=== PATIENT | male | born 1975 | race Caucasian/White ===

== ENCOUNTER 2018-01-04 22:49 | Emergency (ER) | payer SELFPAY ==
--- NOTE | 2018-01-04 23:33 | EDPHYS ---
Physician Documentation [facility] Name: Duy Torres Jr Age: 42 yrs Sex: Male : 1975 Arrival Date: 01/04/2018 Time: 22:54 Bed 23 Private MD: ED Physician Naldo Jones HPI: 01/04 23:27 This 42 yrs old Male presents to ER via Ambulatory with complaints of jmm Toothache, Rash. 23:27 The patient presents with pain. The problem is located in the frenulum, gums, left jmm buccal mucosa and right buccal mucosa. Onset: The symptoms/episode began/occurred gradually. Patient complains of chronic dental pain. Denies fever. Also complains of rash to his left forearm. . Historical: - Allergies: 23:06 No Known Allergies; fc - Home Meds: 23:06 [place] 10-325 mg Oral tab 1 tab every 6 hours [Active]; gabapentin 400 mg oral cap 1 cap fc twice a day [Active]; BuSpar Oral 10 mg twice a day [Active]; - PMHx: 23:06 neck pain; Back pain; Depression; Anxiety; fc - PSHx: 23:06 Hernia repair; testicular torsion; fc - Immunization history:: Last tetanus immunization: unknown. - Social history:: Smoking status: Patient uses tobacco products, smokes one pack cigarettes per day. Patient/guardian denies using alcohol, street drugs, the patient reports quitting approximately 6 years ago. - Ebola Screening: : Patient negative for fever greater than or equal to 101.5 degrees Fahrenheit, and additional compatible Ebola Virus Disease symptoms Patient denies exposure to infectious person Patient denies travel to an Ebola-affected area in the 21 days before illness onset. ROS: 23:27 Constitutional: Negative for fever, chills, and weight loss, Respiratory: Negative for jmm shortness of breath, cough, wheezing, and pleuritic chest pain, Abdomen/GI: Negative for abdominal pain, nausea, vomiting, diarrhea, and constipation. 23:27 MS/Extremity: Negative for injury and deformity. jmm 23:27 ENT: Positive for dental pain. 23:27 Skin: Positive for rash. 23:27 All other systems are negative. Exam: 23:27 Head/Face: atraumatic. Chest/axilla: Normal chest wall appearance and motion. jmm Nontender with no deformity. No lesions are appreciated. Cardiovascular: Regular rate and rhythm. No gallops, murmurs, or rubs. Full/Equal distal pulses. Respiratory: Lungs have equal breath sounds bilaterally, clear to auscultation. No rales, rhonchi or wheezes noted. No increased work of breathing, no retractions or nasal flaring. 23:27 Constitutional: The patient appears in no acute distress, alert, awake. 23:27 ENT: diffuse dental decay noted, no periapical swelling or purulent drainage appreciated. . 23:27 Skin: no erythema noted to the left forearm, no petechiae appreciated, non tender to palpation, no induration appreicated. 23:27 Neuro: Orientation: is normal, Mentation: is normal, Memory: is normal, Gait: is steady. Vital Signs: 23:06 BP 126 / 91; Pulse 75; Resp 20; Temp 99.0(O); Pulse Ox 96% on R/A; Weight 89.36 kg (R); fc Height 5 ft. 9 in. (175.26 cm) (R); Pain 3/10; 23:06 Body Mass Index 29.09 (89.36 kg, 175.26 cm) fc MDM: 23:16 Patient medically screened. julieta 23:27 Data reviewed: vital signs, nurses notes. [facility] Administered Medications: No medications were administered Disposition: 01/05 06:37 Co-signature as Attending Physician, Naldo Jones MD I agree with the assessment and [facility] plan of care. Chart complete. Disposition: 01/04/18 23:32 Discharged to Home. Impression: Other specified disorders of teeth and supporting structures, Rash and other nonspecific skin eruption. - Condition is Stable. - Discharge Instructions: Rash. - Prescriptions for penicillin V potassium 500 mg Oral tablet - take 1 tablet by ORAL route 4 times per day for 10 days; 40 tablet. Peridex 0.12 % Mucous Membrane mouthwash - place 15 milliliter by MUCOUS MEMBRANE route 2 times per day after brushing teeth, swish in mouth for 30 seconds then spit out; 100 milliliter. - Medication Reconciliation Form, Thank You Letter, Antibiotic Education, Prescription Opioid Use form. - Follow up: Private Physician; When: 1 - 2 days; Reason: Recheck today's complaints. - Notes: Please follow up with [facility] or dentist for further evaluation of your dental pain. Please return to the ED if you develop increased pain, fever, swelling, or any other concerning symptoms. Please follow up with dermatotology for further evaluation of your rash. Please return to the ED if you develop redness, increased swelling or fever. Signatures: Naldo Jones MD MD cha Mickail, Joel, PA PA jmm Chretien, Felicia, RN RN Edgard Moreira RN RN mb3 Corrections: (The following items were deleted from the chart) 00:00 06 23:32 01/04/2018 23:32 Discharged to Home. Impression: Other specified disorders mb3 of teeth and supporting structures; Rash and other nonspecific skin eruption. Condition is Stable. Forms are Medication Reconciliation Form, Thank You Letter, Antibiotic Education, Prescription Opioid Use. Follow up: Private Physician; When: 1 - 2 days; Reason: Recheck today's complaints. antoine
--- NOTE | 2018-01-04 23:33 | ER ---
Nurse's Notes [facility] Name: Duy Torres Jr Age: 42 yrs Sex: Male : 1975 Arrival Date: 01/04/2018 Time: 22:54 Bed 23 Private MD: Diagnosis: Other specified disorders of teeth and supporting structures;Rash and other nonspecific skin eruption Presentation: 01/04 22:59 Presenting complaint: Patient states: that all his teeth hurt and he needs antibiotics. fc States that he has a bad taste and smell in his mouth even after brushing teeth. Is also complaining of brown spots x 3 on his left forearm that he noticed approx 1 year ago. The areas started to hurt and itch recently. Transition of care: patient was not received from another setting of care. Onset of symptoms was September 2017. Risk Assessment: Do you want to hurt yourself or someone else? Patient reports no desire to harm self or others. Initial Sepsis Screen: Does the patient meet any 2 criteria? No. Patient's initial sepsis screen is negative. Does the patient have a suspected source of infection? No. Patient's initial sepsis screen is negative. Care prior to arrival: Medication(s) given: [place] last at 2200. 22:59 Method Of Arrival: Ambulatory 22:59 Acuity: VALERIE 4 Triage Assessment: 23:57 General: Appears unkempt. EENT: Reports pain in mouth. mb3 Historical: - Allergies: 23:06 No Known Allergies; fc - Home Meds: 23:06 [place] 10-325 mg Oral tab 1 tab every 6 hours [Active]; gabapentin 400 mg oral cap 1 cap fc twice a day [Active]; BuSpar Oral 10 mg twice a day [Active]; - PMHx: 23:06 neck pain; Back pain; Depression; Anxiety; fc - PSHx: 23:06 Hernia repair; testicular torsion; fc - Immunization history:: Last tetanus immunization: unknown. - Social history:: Smoking status: Patient uses tobacco products, smokes one pack cigarettes per day. Patient/guardian denies using alcohol, street drugs, the patient reports quitting approximately 6 years ago. - Ebola Screening: : Patient negative for fever greater than or equal to 101.5 degrees Fahrenheit, and additional compatible Ebola Virus Disease symptoms Patient denies exposure to infectious person Patient denies travel to an Ebola-affected area in the 21 days before illness onset. Screenin:56 Abuse screen: Denies threats or abuse. Nutritional screening: No deficits noted. mb3 Tuberculosis screening: No symptoms or risk factors identified. Fall Risk None identified. Assessment: 23:54 General: Appears in no apparent distress. slender, unkempt, Behavior is calm, mb3 cooperative, appropriate for age. Pain: Complains of pain in mouth. Neuro: No deficits noted. Cardiovascular: No deficits noted. Respiratory: No deficits noted. GI: No deficits noted. No signs and/or symptoms were reported involving the gastrointestinal system. EENT: Poor dentition noted. Dental caries noted in multiple dental carries in multiple teeth. Vital Signs: 23:06 BP 126 / 91; Pulse 75; Resp 20; Temp 99.0(O); Pulse Ox 96% on R/A; Weight 89.36 kg (R); fc Height 5 ft. 9 in. (175.26 cm) (R); Pain 3/10; 23:06 Body Mass Index 29.09 (89.36 kg, 175.26 cm) ED Course: 22:54 Patient arrived in ED. es 23:03 Triage completed. 23:06 Arm band placed on Patient placed in an exam room, on a stretcher. 23:11 Glenn Kne PA is PHCP. [facility] 23:12 Naldo Jones MD is Attending Physician. [facility] 23:50 Edgard Colby, RN is Primary Nurse. mb3 23:56 No provider procedures requiring assistance completed. Patient did not have IV access mb3 during this emergency room visit. 23:57 Patient has correct armband on for positive identification. mb3 Administered Medications: No medications were administered Outcome: 23:32 Discharge ordered by . christopherm 23:56 Discharged to home ambulatory. mb3 23:56 Condition: stable 23:56 Discharge instructions given to patient, Instructed on discharge instructions, follow up and referral plans. medication usage, Demonstrated understanding of instructions, follow-up care, medications, Prescriptions given X 2. 06/08 00:00 Patient left the ED. mb3 Signatures: Glenn Ken PA PA Melani Hopkins Felicia, RN RN Edgard Colby RN RN mb3 Corrections: (The following items were deleted from the chart) 00:00 06/07 23:56 Discharge instructions given to patient, Instructed on discharge mb3 instructions, follow up and referral plans. medication usage, Demonstrated understanding of instructions, follow-up care, medications, Prescriptions given X 1, mb3 01/05 00:00 01/04 23:59 Prescriptions given X 2, mb3 mb3
== END 2018-01-05 | disposition home or self-care (01) ==
LOC: ER 22:49
DX: K08.89 Other specified disorders of teeth and supporting structures (principal); R21 Rash and other nonspecific skin eruption; F32.9 Major depressive disorder, single episode, unspecified; F41.9 Anxiety disorder, unspecified; F17.210 Nicotine dependence, cigarettes, uncomplicated
CPT/HCPCS: 99282

== ENCOUNTER 2018-03-29 23:19 | Emergency (ER) | payer SELFPAY ==
[2018-03-30] MEDS ORDERED: IPRATROPIUM BROM 0.5MG/2.5ML ONE (01:07)
[2018-03-30] MEDS ORDERED: ALBUTEROL 2.5 MG/3 ML NEB SOL ONE (01:07)
[2018-03-30] MEDS ORDERED: IBUPROFEN 400 MG TAB ONE (01:08)
[2018-03-30] MEDS ORDERED: IBUPROFEN 200 MG TAB PO ONE (01:08)
[2018-03-30] MEDS ORDERED: ACETAMINOPHEN 500 MG TAB ONE (01:08)
[2018-03-30] MEDS ORDERED: predniSONE 20 MG TAB ONE (01:09)
--- NOTE | 2018-03-30 02:46 | EDPHYS ---
Physician Documentation [facility] Name: Duy Torres Jr Age: 42 yrs Sex: Male : 1975 Arrival Date: 03/29/2018 Time: 23:22 Bed 7 Private MD: ED Physician Zbigniew Bragg HPI: 03/30 02:39 This 42 yrs old Male presents to ER via Ambulatory with complaints of Throat wa pain, rt chest pain. 02:39 The patient or guardian reports cough, that is constant, with no sputum, sore throat. wa pain in R chest with deep breathing. Onset: The symptoms/episode began/occurred 3 day(s) ago. Modifying factors: The symptoms are alleviated by nothing. the symptoms are aggravated by cough. Associated signs and symptoms: Pertinent positives: chest pain, sore throat, Pertinent negatives: diarrhea, fever, rhinorrhea, vomiting. Severity of symptoms: At their worst the symptoms were moderate in the emergency department the symptoms are unchanged. The patient has not experienced similar symptoms in the past. The patient has not recently seen a physician. smokes cigarettes . Historical: - Allergies: 03/29 23:40 No Known Allergies; bb - Home Meds: 23:40 [place] 10-325 mg Oral tab 1 tab every 6 hours [Active]; gabapentin 400 mg Oral cap 1 cap bb twice a day [Active]; - PMHx: 23:40 Anxiety; Back pain; Depression; neck pain; bb - PSHx: 23:40 Hernia repair; testicular torsion; bb - Immunization history:: Adult Immunizations unknown. - Social history:: Smoking status: Patient uses tobacco products, smokes two packs cigarettes per day. Patient/guardian denies using alcohol, street drugs, the patient reports quitting approximately 6 years ago. - Ebola Screening: : No symptoms or risks identified at this time. - Family history:: not pertinent. - Hospitalizations: : No recent hospitalization is reported. ROS: 03/30 02:41 Constitutional: Negative for fever, chills, and weight loss, Eyes: Negative for injury, wa pain, redness, and discharge, Neck: Negative for injury, pain, and swelling, Abdomen/GI: Negative for abdominal pain, nausea, vomiting, diarrhea, and constipation, Back: Negative for injury and pain, MS/Extremity: Negative for injury and deformity, Skin: Negative for injury, rash, and discoloration, Neuro: Negative for headache, weakness, numbness, tingling, and seizure, Psych: Negative for depression, anxiety, suicide ideation, homicidal ideation, and hallucinations. ENT: Positive for sore throat, Negative for nasal discharge, rhinorrhea. Cardiovascular: Positive for chest pain, with cough, Negative for edema, orthopnea, palpitations, paroxysmal nocturnal dyspnea. Respiratory: Positive for cough, with no reported sputum, Negative for hemoptysis, orthopnea, shortness of breath. Exam: 02:42 Constitutional: This is a well developed, well nourished patient who is awake, alert, wa and in no acute distress. Head/Face: Normocephalic, atraumatic. Eyes: Pupils equal round and reactive to light, extra-ocular motions intact. Lids and lashes normal. Conjunctiva and sclera are non-icteric and not injected. Cornea within normal limits. Periorbital areas with no swelling, redness, or edema. ENT: Nares patent. No nasal discharge, no septal abnormalities noted. Tympanic membranes are normal and external auditory canals are clear. Oropharynx with no redness, swelling, or masses, exudates, or evidence of obstruction, uvula midline. Mucous membranes moist. Neck: Trachea midline, no thyromegaly or masses palpated, and no cervical lymphadenopathy. Supple, full range of motion without nuchal rigidity, or vertebral point tenderness. No Meningismus. Chest/axilla: Normal chest wall appearance and motion. Nontender with no deformity. No lesions are appreciated. Cardiovascular: Regular rate and rhythm with a normal S1 and S2. No gallops, murmurs, or rubs. Normal PMI, no JVD. No pulse deficits. Abdomen/GI: Soft, non-tender, with normal bowel sounds. No distension or tympany. No guarding or rebound. No evidence of tenderness throughout. Back: No spinal tenderness. No costovertebral tenderness. Full range of motion. Skin: Warm, dry with normal turgor. Normal color with no rashes, no lesions, and no evidence of cellulitis. MS/ Extremity: Pulses equal, no cyanosis. Neurovascular intact. Full, normal range of motion. Neuro: Awake and alert, GCS 15, oriented to person, place, time, and situation. Cranial nerves II-XII grossly intact. Motor strength 5/5 in all extremities. Sensory grossly intact. Cerebellar exam normal. Normal gait. Psych: Awake, alert, with orientation to person, place and time. Behavior, mood, and affect are within normal limits. 02:42 Respiratory: the patient does not display signs of respiratory distress, Respirations: normal, Breath sounds: mild, scattered coarseness. , Respiratory rate: normal Vital Signs: 03/29 23:40 BP 129 / 91; Pulse 80; Resp 18 S; Temp 98.4(TE); Pulse Ox 97% on R/A; Weight 89.36 kg bb (R); Height 5 ft. 4 in. (162.56 cm) (R); Pain 7/10; 03/30 01:22 BP 115 / 48; Pulse 72; Resp 18; Pulse Ox 100% on R/A; jb4 02:22 BP 120 / 80; Pulse 80; Resp 18; Pulse Ox 95% on R/A; Pain 6/10; jb4 03/29 23:40 Body Mass Index 33.81 (89.36 kg, 162.56 cm) MDM: 00:31 Patient medically screened. ga 02:43 Differential diagnosis: bronchitis, URI, r/o PNA. Data reviewed: vital signs, nurses wa notes. Test interpretation: by ED physician or midlevel provider: CXR: no acute process: noted spot on L lung that needs close f/u in a pt who smokes. pt advised. Response to treatment: the patient's symptoms have markedly improved after treatment. 03/30 00:52 Order name: Chest Pa And Lat (2 Views) XRAY ga 03/30 00:21 Order name: EKG; Complete Time: 00:22 aa1 03/30 00:21 Order name: EKG - Nurse/Tech; Complete Time: 00:21 aa1 Administered Medications: : Drug: Motrin 600 mg Route: PO; 02:00 Follow up: Response: Pain is decreased : Drug: Tylenol 1000 mg Route: PO; 02:00 Follow up: Response: Pain is decreased Drug: Albuterol 2.5 mg Route: Inhalation; 02:00 Follow up: Response: No adverse reaction : Drug: AtroVENT Aerosol 0.5 mg Route: Inhalation; 02:00 Follow up: Response: No adverse reaction jb4 01:26 Drug: predniSONE 40 mg Route: PO; jb4 02:00 Follow up: Response: No adverse reaction jb4 Disposition: 03/30/18 02:45 Discharged to Home. Impression: Acute Pleuritic Chest Pain, Acute Sore Throat, cough. - Condition is Stable. - Prescriptions for Zithromax Z- [place] 250 mg Oral Tablet - take 1 tablet by ORAL route as directed for 5 days Day 1 - take two (2) tablets one time. Day 2, 3, 4 , 5 take one (1) tablet once daily.; 6 tablet. Albuterol Sulfate 90 mcg/actuation - inhale 1-2 puff by INHALATION route every 4-6 hours; 1 Inhaler. Prednisone 20 mg Oral Tablet - take 2 tablet by ORAL route once daily for 5 days; 10 tablet. - Medication Reconciliation Form, Thank You Letter, Antibiotic Education, Prescription Opioid Use form. - Follow up: Private Physician; When: 1 - 2 days; Reason: Re-evaluation by your physician. - Problem is new. - Symptoms have improved. - Notes: Take medicines as prescribed. follow up with your primary doctor for further evaluation of your illness. There is spot in your left lung that is abnormal and need to be followed with serial chest x-rays to make sure it does not turn into cancer Signatures: Dispatcher [employer] EDFlower Sykes RN RN aa1 Shazia Garcia RN RN bb Chance Chew RN RN jb4 Zbigniew Bragg MD MD wa Corrections: (The following items were deleted from the chart) 03:11 02:45 03/30/2018 02:45 Discharged to Home. Impression: Acute Pleuritic Chest Pain; jb4 Acute Sore Throat; cough. Condition is Stable. Forms are Medication Reconciliation Form, Thank You Letter, Antibiotic Education, Prescription Opioid Use. Follow up: Private Physician; When: 1 - 2 days; Reason: Re-evaluation by your physician. Problem is new. Symptoms have improved. wa
--- NOTE | 2018-03-30 02:46 | ER ---
Nurse's Notes [facility] Name: Duy Torres Jr Age: 42 yrs Sex: Male : 1975 Arrival Date: 03/29/2018 Time: 23:22 Bed 7 Private MD: Diagnosis: Acute Pleuritic Chest Pain;Acute Sore Throat;cough Presentation: 03/29 23:38 Presenting complaint: Patient states: he has right sided chest pain since yesterday has bb a dry cough, also c/o sore throat for several days feels scratchy, pt takes hydrocodone for chronic neck pain which is not helping his chest pain. Transition of care: patient was not received from another setting of care. Onset of symptoms was March 26, 2018. Risk Assessment: Do you want to hurt yourself or someone else? Patient reports no desire to harm self or others. Initial Sepsis Screen: Does the patient meet any 2 criteria? No. Patient's initial sepsis screen is negative. Does the patient have a suspected source of infection? No. Patient's initial sepsis screen is negative. Care prior to arrival: None. 23:38 Method Of Arrival: Ambulatory bb 23:38 Acuity: VALERIE 3 bb Historical: - Allergies: 23:40 No Known Allergies; bb - Home Meds: 23:40 [place] 10-325 mg Oral tab 1 tab every 6 hours [Active]; gabapentin 400 mg Oral cap 1 cap bb twice a day [Active]; - PMHx: 23:40 Anxiety; Back pain; Depression; neck pain; bb - PSHx: 23:40 Hernia repair; testicular torsion; bb - Immunization history:: Adult Immunizations unknown. - Social history:: Smoking status: Patient uses tobacco products, smokes two packs cigarettes per day. Patient/guardian denies using alcohol, street drugs, the patient reports quitting approximately 6 years ago. - Ebola Screening: : No symptoms or risks identified at this time. - Family history:: not pertinent. - Hospitalizations: : No recent hospitalization is reported. Screenin/31 00:36 Abuse screen: Denies threats or abuse. Nutritional screening: No deficits noted. jb4 Tuberculosis screening: No symptoms or risk factors identified. Fall Risk None identified. Assessment: 00:36 General: Appears in no apparent distress. uncomfortable, Behavior is calm, cooperative, jb4 appropriate for age. Pain: Complains of pain in right breast Pain radiates to right subscapular area Pain currently is 7 out of 10 on a pain scale. at worst was 9 out of 10 on a pain scale. Quality of pain is described as sharp, throbbing, Pain began 1 day ago. Is continuous. Neuro: Level of Consciousness is awake, alert, obeys commands, Oriented to person, place, time, situation. Cardiovascular: Reports chest pain, Heart tones S1 S2 present Patient's skin is warm and dry. Respiratory: Reports cough that is non-productive, Airway is patent Respiratory effort is even, unlabored, Respiratory pattern is regular, symmetrical, Breath sounds are clear bilaterally. GI: Abdomen is round Bowel sounds present X 4 quads. Abd is soft and non tender X 4 quads. Reports nausea. : No signs and/or symptoms were reported regarding the genitourinary system. EENT: Throat is reddened. Derm: Skin is intact, Skin is pink, warm \T\ dry. Musculoskeletal: Circulation, motion, and sensation intact. 01:29 Reassessment: Patient appears in no apparent distress at this time. Patient and/or jb4 family updated on plan of care and expected duration. Pain level reassessed. Patient is alert, oriented x 3, equal unlabored respirations, skin warm/dry/pink. 02:22 Reassessment: Patient appears in no apparent distress at this time. Patient and/or jb4 family updated on plan of care and expected duration. Pain level reassessed. Patient is alert, oriented x 3, equal unlabored respirations, skin warm/dry/pink. Pt reports a decrease in pain. Patient states feeling better. Vital Signs: 03/29 23:40 BP 129 / 91; Pulse 80; Resp 18 S; Temp 98.4(TE); Pulse Ox 97% on R/A; Weight 89.36 kg bb (R); Height 5 ft. 4 in. (162.56 cm) (R); Pain 7; 03/30 01:22 BP 115 / 48; Pulse 72; Resp 18; Pulse Ox 100% on R/A; jb4 02:22 BP 120 / 80; Pulse 80; Resp 18; Pulse Ox 95% on R/A; Pain 6/10; jb4 03/29 23:40 Body Mass Index 33.81 (89.36 kg, 162.56 cm) ED Course: 03/29 23:22 Patient arrived in ED. es 23:39 Triage completed. bb 23:40 Arm band placed on Patient placed in waiting room, Patient notified of wait time. agustín 03/30 00:30 Zbigniew Bragg MD is Attending Physician. in 00:36 Chance Chew RN is Primary Nurse. jb4 00:36 Patient has correct armband on for positive identification. Bed in low position. Call jb4 light in reach. Side rails up X 1. Pulse ox on. NIBP on. 01:11 Chest Pa And Lat (2 Views) XRAY In Process Unspecified. EDMS 03:10 No provider procedures requiring assistance completed. Patient did not have IV access jb4 during this emergency room visit. Administered Medications: :26 Drug: Motrin 600 mg Route: PO; jb4 02:00 Follow up: Response: Pain is decreased jb4 01:26 Drug: Tylenol 1000 mg Route: PO; jb4 02:00 Follow up: Response: Pain is decreased jb4 01:26 Drug: Albuterol 2.5 mg Route: Inhalation; jb4 02:00 Follow up: Response: No adverse reaction jb4 01:26 Drug: AtroVENT Aerosol 0.5 mg Route: Inhalation; jb4 02:00 Follow up: Response: No adverse reaction jb4 01:26 Drug: predniSONE 40 mg Route: PO; jb4 02:00 Follow up: Response: No adverse reaction jb4 Outcome: 02:45 Discharge ordered by . jason 03:10 Discharged to home ambulatory. jb4 03:10 Condition: stable 03:10 Discharge instructions given to patient, Instructed on discharge instructions, follow up and referral plans. medication usage, Demonstrated understanding of instructions, follow-up care, medications, Prescriptions given X 3. 03:11 Patient left the ED. jb4 Signatures: Dispatcher [employer] EDLA Melani Sheehan Brenda, RN RN bb Bryson, James, RN RN jb4 Zbigniew Bragg MD MD wa Corrections: (The following items were deleted from the chart) 00:36 EENT: No signs and/or symptoms were reported regarding the EENT system. jb4 jb4
--- NOTE | 2018-03-30 08:40 | RAD REPORT ---
EXAM DESCRIPTION: RAD - Chest Pa And Lat (2 Views) - 03/30/2018 1:13 am CLINICAL HISTORY: COUGH Chest pain. COMPARISON: CHEST PA AND LAT 2 VIEW dated 08/16/2014; CHEST PA AND LAT 2 VIEW dated 08/15/2014 FINDINGS: Left upper lobe calcified granulomata are noted, benign. The lungs are clear of acute infi ltrate. The heart is normal in size. No displaced fractures. IMPRESSION: No acute or concerning finding suspected.
--- NOTE | 2018-03-31 06:09 | EKG ---
Test Date: 2018-03-29 Test Time: 23:42:36 [employer]: [place] MEASUREMENT RESULTS: Intervals: Rate: 68 IN: 162 QRSD: 104 QT: 372 QTc: 395 [place]: P: 42 IN: 162 QRS: 58 T: 39 INTERPRETIVE STATEMENTS: Normal sinus rhythm with sinus arrhythmia Normal ECG Compared to ECG 08/16/2014 20:51:11 No significant changes Electronically Signed On 03-31-18 06:07:34 CDT by Ronald Gamble
== END 2018-03-30 03:11 | disposition home or self-care (01) ==
LOC: ER 23:19
DX: J02.9 Acute pharyngitis, unspecified (principal); R07.81 Pleurodynia; F17.210 Nicotine dependence, cigarettes, uncomplicated; F41.9 Anxiety disorder, unspecified; F32.9 Major depressive disorder, single episode, unspecified
CPT/HCPCS: 71046; 93005; 99284; J7512

== ENCOUNTER 2019-06-15 06:21 | Emergency (ER) | payer SELFPAY ==
--- OUTSIDE RECORDS SUMMARY | 2019-06-15 06:23 | XMS REPORT ---
:1975 [facility] Address [address] [place] [address] [address] [place] [address] Care Team Providers Name Role Phone Unavailable Unavailable Unavailable Problems This patient has no known problems. Allergies, Adverse Reactions, Alerts This patient has no known allergies or adverse reactions. Medications This patient has no known medications.
--- NOTE | 2019-06-15 06:40 | ER ---
Nurse's Notes [facility] Name: Duy Torres Jr Age: 43 yrs Sex: Male : 1975 Arrival Date: 06/15/2019 Time: 06:23 Bed 5 Private MD: Diagnosis: Bronchitis, not specified as acute or chronic Presentation: 06/15 06:35 Presenting complaint: Patient states: cold symptoms for past 4-5 days and was seen at [address] and was started on medication but he had to miss several days of work and was told he needed to have a note to return to work on monday. Transition of care: patient was not received from another setting of care. Onset of symptoms was June 10, 2019. Risk Assessment: Do you want to hurt yourself or someone else? Patient reports no desire to harm self or others. Initial Sepsis Screen: Does the patient meet any 2 criteria? No. Patient's initial sepsis screen is negative. Does the patient have a suspected source of infection? No. Patient's initial sepsis screen is negative. Care prior to arrival: None. 06:35 Method Of Arrival: Ambulatory aa 06:35 Acuity: VALERIE 5 aa1 Triage Assessment: 06:37 General: Appears in no apparent distress. comfortable, Behavior is calm, cooperative, aa1 appropriate for age. Historical: - Allergies: 06:37 No Known Allergies; aa1 - Home Meds: 06:37 unknown BP med [Active]; aa1 - PMHx: 06:37 Anxiety; Back pain; Depression; neck pain; aa1 - PSHx: 06:37 testicular torsion; Hernia repair; aa1 - Immunization history:: Flu vaccine is not up to date. - Social history:: Smoking status: Patient uses tobacco products, smokes one pack cigarettes per day. - Ebola Screening: : Patient denies exposure to infectious person Patient denies travel to an Ebola-affected area in the 21 days before illness onset. Screenin:55 Abuse screen: Denies threats or abuse. Denies injuries from another. Nutritional ak1 screening: No deficits noted. Tuberculosis screening: No symptoms or risk factors identified. Fall Risk None identified. Vital Signs: 06:37 BP 138 / 83; Pulse 84; Resp 20; Temp 98.3; Pulse Ox 98% on R/A; Weight 92.99 kg; Height aa1 5 ft. 9 in. (175.26 cm); Pain 5/10; 06:37 Body Mass Index 30.27 (92.99 kg, 175.26 cm) aa1 ED Course: 06:23 Patient arrived in ED. ds1 06:34 Raúl Scott NP is PHCP. pm1 06:34 Fermin Syed MD is Attending Physician. pm1 06:37 Triage completed. aa1 06:37 Arm band placed on right wrist. aa1 06:55 Angélica Le, RN is Primary Nurse. ak1 06:55 Patient has correct armband on for positive identification. Bed in low position. Call ak1 light in reach. Side rails up X 1. 06:55 No provider procedures requiring assistance completed. Patient did not have IV access ak1 during this emergency room visit. Administered Medications: No medications were administered Outcome: 06:40 Discharge ordered by . pm1 06:55 Discharged to home ambulatory, pt mother is in ER6. ak1 06:55 Condition: good 06:55 Discharge instructions given to patient, Instructed on discharge instructions, follow up and referral plans. Demonstrated understanding of instructions, follow-up care. 06:57 Patient left the ED. ak1 Signatures: Flower Rodriguez RN RN aa1 Vaishali Curtis ds1 Angélica Le RN RN ak1 Raúl Scott, ANGELICA FIELD ARTILLERY TARGETING TECHNICIAN pm1
--- NOTE | 2019-06-15 06:40 | EDPHYS ---
Physician Documentation [facility] Name: Duy Torres Jr Age: 43 yrs Sex: Male : 1975 Arrival Date: 06/15/2019 Time: 06:23 Bed 5 Private MD: ED Physician Fermin Syed HPI: 06/15 06:38 This 43 yrs old Male presents to ER via Ambulatory with complaints of Cold pm1 Symptoms. 06:41 The patient or guardian reports cough. Onset: The symptoms/episode began/occurred 1 pm1 week(s) ago. Severity of symptoms: in the emergency department the symptoms have improved. Associated signs and symptoms: Pertinent negatives: chest pain, fever, sore throat, vomiting. The patient has been recently seen by a physician: Has been seen at two prior ER, [place] and [place] for the same complaint and has been prescribed antibiotics, albuterol, and steroids. Patient reports that he is feeling better and that he is here for a work note to return on Monday because he does not want to lose his job. Historical: - Allergies: 06:37 No Known Allergies; aa1 - Home Meds: 06:37 unknown BP med [Active]; aa1 - PMHx: 06:37 Anxiety; Back pain; Depression; neck pain; aa1 - PSHx: 06:37 testicular torsion; Hernia repair; aa1 - Immunization history:: Flu vaccine is not up to date. - Social history:: Smoking status: Patient uses tobacco products, smokes one pack cigarettes per day. - Ebola Screening: : Patient denies exposure to infectious person Patient denies travel to an Ebola-affected area in the 21 days before illness onset. ROS: 06:41 Constitutional: Negative for fever, chills, and weight loss, Eyes: Negative for injury, pm1 pain, redness, and discharge, ENT: Negative for injury, pain, and discharge, Neck: Negative for injury, pain, and swelling, Cardiovascular: Negative for chest pain, palpitations, and edema. 06:41 Abdomen/GI: Negative for abdominal pain, nausea, vomiting, diarrhea, and constipation, Back: Negative for injury and pain, MS/Extremity: Negative for injury and deformity, Skin: Negative for injury, rash, and discoloration, Neuro: Negative for headache, weakness, numbness, tingling, and seizure. 06:41 Respiratory: Positive for cough, Negative for dyspnea on exertion, shortness of breath, wheezing. Exam: 06:41 Constitutional: This is a well developed, well nourished patient who is awake, alert, pm1 and in no acute distress. Head/Face: Normocephalic, atraumatic. Chest/axilla: Normal chest wall appearance and motion. Nontender with no deformity. No lesions are appreciated. Cardiovascular: Regular rate and rhythm with a normal S1 and S2. No gallops, murmurs, or rubs. Normal PMI, no JVD. No pulse deficits. Respiratory: Lungs have equal breath sounds bilaterally, clear to auscultation and percussion. No rales, rhonchi or wheezes noted. No increased work of breathing, no retractions or nasal flaring. Abdomen/GI: Soft, non-tender, with normal bowel sounds. No distension or tympany. No guarding or rebound. No evidence of tenderness throughout. Back: No spinal tenderness. No costovertebral tenderness. Full range of motion. Skin: Warm, dry with normal turgor. Normal color with no rashes, no lesions, and no evidence of cellulitis. MS/ Extremity: Pulses equal, no cyanosis. Neurovascular intact. Full, normal range of motion. 06:41 Neuro: Orientation: is normal, Motor: is normal, moves all fours, Gait: is steady, at a normal pace, without difficulty. Vital Signs: 06:37 BP 138 / 83; Pulse 84; Resp 20; Temp 98.3; Pulse Ox 98% on R/A; Weight 92.99 kg; Height aa1 5 ft. 9 in. (175.26 cm); Pain 5/10; 06:37 Body Mass Index 30.27 (92.99 kg, 175.26 cm) aa1 MDM: 06:34 Patient medically screened. pm1 06:38 Data reviewed: vital signs. Data interpreted: Pulse oximetry: on room air is 98 %. pm1 Interpretation: normal. Counseling: I had a detailed discussion with the patient and/or guardian regarding: the historical points, exam findings, and any diagnostic results supporting the discharge/admit diagnosis, the need for outpatient follow up, to return to the emergency department if symptoms worsen or persist or if there are any questions or concerns that arise at home. 06:38 ED course: Patient offered chest X-ray and breathing treatment. Patient refused any pm1 kind of work up. He reports that he has an inhaler at home, azithromycin and steroids from his prior ER visits and is feeling better. He just wants to work note to go back to work on Monday. Administered Medications: No medications were administered Disposition: 06/15/19 06:40 Discharged to Home. Impression: Bronchitis, not specified as acute or chronic. - Condition is Stable. - Discharge Instructions: Acute Bronchitis, Adult. - Work release form, Medication Reconciliation Form, Thank You Letter, Antibiotic Education, Prescription Opioid Use form. - Follow up: Emergency Department; When: As needed; Reason: Worsening of condition. Follow up: Private Physician; When: 2 - 3 days; Reason: Recheck today's complaints, Continuance of care, Re-evaluation by your physician. - Problem is new. - Symptoms have improved. Addendum: 06/17/2019 21:54 Co-signature as Attending Physician, Fermin Syed MD I agree with the assessment and t w4 plan of care. Signatures: Flower Rodriguez RN RN aa1 Angélica Le RN RN ak1 Raúl Scott, ANDROID FRAMEWORK DEVELOPER ANDROID FRAMEWORK DEVELOPER pm1 Fermin Syed MD MD tw4 Corrections: (The following items were deleted from the chart) 06/15 06:57 06:40 06/15/2019 06:40 Discharged to Home. Impression: Bronchitis, not specified as ak1 acute or chronic. Condition is Stable. Forms are Medication Reconciliation Form, Thank You Letter, Antibiotic Education, Prescription Opioid Use. Follow up: Emergency Department; When: As needed; Reason: Worsening of condition. Follow up: Private Physician; When: 2 - 3 days; Reason: Recheck today's complaints, Continuance of care, Re-evaluation by your physician. Problem is new. Symptoms have improved. pm1
[2019-06-15 13:04] VITALS: BP 138/83; TEMP 98.3; O2SAT 98
== END 2019-06-15 06:57 | disposition home or self-care (01) ==
LOC: ER 06:21
DX: J40 Bronchitis, not specified as acute or chronic (principal); F17.210 Nicotine dependence, cigarettes, uncomplicated
CPT/HCPCS: 99281

== ENCOUNTER 2020-05-13 19:29 | Emergency (ER) | payer SELFPAY ==
--- OUTSIDE RECORDS SUMMARY | 2020-05-13 19:31 | XMS REPORT | Continuity of Care Document ---
:[address] [facility] Address [address] [place] [address] [address] [place] [address] Care Team Providers Name Role Phone Unavailable Unavailable Unavailable Problems This patient has no known problems. Allergies, Adverse Reactions, Alerts This patient has no known allergies or adverse reactions. Medications This patient has no known medications. Procedures This patient has no known procedures. Results This patient has no known results.
[2020-05-13 21:26] LABS: Absolute Lymphocytes (CBC) 3.9 K/uL (0.7-4.9); Basophils % 0.7 % (0-1.3); Lymphocytes % 31.6 % (15.3-44.8); MPV 9.7 fL (7.6-11.3); RBC Red Blood Cell Count 4.96 M/uL (4.33-5.43)
[2020-05-13 21:38] LABS: ALT/SGPT 62 U/L (12-78); AST/SGOT 20 U/L (15-37); Albumin 3.8 g/dL (3.4-5.0); Alkaline Phosphatase 106 U/L (45-117); BUN Blood Urea Nitrogen 14 mg/dL (7-18); Bicarbonate 30 mmol/L (21-32); Bilirubin Direct < 0.1 mg/dL (0-0.2); Bilirubin Total 0.3 mg/dL (0.2-1.0); Glucose Level 98 mg/dL (74-106); Lipase 90 U/L (73-393); Potassium 3.8 mmol/L (3.5-5.1); Protein, Total 7.7 g/dL (6.4-8.2); Sodium Level 144 mmol/L (136-145)
[2020-05-13] MEDS ORDERED: MORPHINE 4 MG/ML SYR ONE (21:44)
[2020-05-13] MEDS ORDERED: ONDANSETRON 4 MG/2 ML VIAL ONE (21:44)
[2020-05-13] MEDS ORDERED: NA CHLORIDE 0.9% 1,000 ML ONE (21:44)
[2020-05-14] MEDS ORDERED: KETOROLAC 30 MG/ML INJ ONE (00:14)
--- NOTE | 2020-05-14 00:37 | ER ---
Nurse's Notes [facility] Name: Duy Torres Jr Age: 44 yrs Sex: Male : 1975 Arrival Date: 05/13/2020 Time: 19:30 Bed 13 Private MD: Diagnosis: Kidney Stones Presentation: 05/13 19:49 Chief complaint: Patient states: I have a kidney stone 4mm on the R kidney. They gave ca1 me Flomax and some pain meds. But today, the pain has been worse on my R flank and shooting down the R testicle. I have not been able to pee and I am peein drops of blood. Coronavirus screen: Client denies travel out of the [place] in the last 14 days. At this time, the client does not indicate any symptoms associated with coronavirus-19. Ebola Screen: Patient negative for fever greater than or equal to 101.5 degrees Fahrenheit, and additional compatible Ebola Virus Disease symptoms Patient denies exposure to infectious person. Patient denies travel to an Ebola-affected area in the 21 days before illness onset. No symptoms or risks identified at this time. Initial Sepsis Screen: Does the patient meet any 2 criteria? No. Patient's initial sepsis screen is negative. Does the patient have a suspected source of infection? No. Patient's initial sepsis screen is negative. Risk Assessment: Do you want to hurt yourself or someone else? Patient reports no desire to harm self or others. Onset of symptoms was May 13, 2020. 19:49 Method Of Arrival: Ambulatory ca1 19:49 Acuity: VALERIE 3 ca1 Historical: - Allergies: 19:53 No Known Allergies; ca1 - PMHx: 19:53 Anxiety; Back pain; Depression; neck pain; Kidney stones; ca1 - PSHx: 19:53 testicular torsion; Hernia repair; ca1 - Immunization history:: Adult Immunizations up to date, Flu vaccine is not up to date. - Social history:: Smoking status: Patient reports the use of cigarette tobacco products, smokes one pack cigarettes per day. Screenin:00 Abuse screen: Denies threats or abuse. Nutritional screening: No deficits noted. jb4 Tuberculosis screening: No symptoms or risk factors identified. Fall Risk None identified. Assessment: 20:00 General: Appears in no apparent distress. uncomfortable, Behavior is calm, cooperative, jb4 appropriate for age. Pain: Complains of pain in right low back Pain does not radiate. Pain currently is 10 out of 10 on a pain scale. Quality of pain is described as throbbing, Pain began 2-3 days ago. Is continuous. Neuro: Level of Consciousness is awake, alert, obeys commands, Oriented to person, place, time, situation. Cardiovascular: Patient's skin is warm and dry. Respiratory: Airway is patent Respiratory effort is even, unlabored, Respiratory pattern is regular, symmetrical. GI: Reports nausea. : Reports pain in right flank(s), lower quadrant(s) testicle. EENT: No signs and/or symptoms were reported regarding the EENT system. Derm: Skin is intact, Skin is pink, warm \T\ dry. Musculoskeletal: Circulation, motion, and sensation intact. Range of motion: intact in all extremities. 21:00 Reassessment: Patient appears in no apparent distress at this time. Patient and/or jb4 family updated on plan of care and expected duration. Pain level reassessed. Patient is alert, oriented x 3, equal unlabored respirations, skin warm/dry/pink. 21:42 Reassessment: Patient appears in no apparent distress at this time. Patient and/or jb4 family updated on plan of care and expected duration. Pain level reassessed. Patient is alert, oriented x 3, equal unlabored respirations, skin warm/dry/pink. 22:45 Reassessment: Patient appears in no apparent distress at this time. Patient and/or jb4 family updated on plan of care and expected duration. Pain level reassessed. Patient is alert, oriented x 3, equal unlabored respirations, skin warm/dry/pink. 23:45 Reassessment: Patient appears in no apparent distress at this time. Patient and/or jb4 family updated on plan of care and expected duration. Pain level reassessed. Patient is alert, oriented x 3, equal unlabored respirations, skin warm/dry/pink. PT reports an increase in pain, provider notified, see MAR for orders. 05/14 01:15 Reassessment: Patient appears in no apparent distress at this time. Patient and/or jb4 family updated on plan of care and expected duration. Pain level reassessed. Patient is alert, oriented x 3, equal unlabored respirations, skin warm/dry/pink. Vital Signs: 10/14 19:49 BP 125 / 97; Pulse 89; Resp 16; Temp 97.4(TE); Pulse Ox 98% on R/A; Weight 94.8 kg (R); ca1 Height 5 ft. 9 in. (175.26 cm) (R); Pain 9/10; 21:40 BP 143 / 100; Pulse 68; Resp 16; Pulse Ox 98% on R/A; jb4 22:30 BP 137 / 93; Pulse 80; Resp 16; Pulse Ox 99% on R/A; jb4 05/14 00:00 BP 133 / 87; Pulse 71; Resp 16; Pulse Ox 98% on R/A; jb4 00:45 BP 138 / 93; Pulse 86; Resp 16; Pulse Ox 97% on R/A; jb4 05/13 19:49 Body Mass Index 30.86 (94.80 kg, 175.26 cm) ca1 ED Course: 05/13 19:30 Patient arrived in ED. cf2 19:52 Triage completed. ca1 19:53 Arm band placed on right wrist. ca1 19:59 Chance Chew, RN is Primary Nurse. jb4 20:00 Patient has correct armband on for positive identification. Bed in low position. Call jb4 light in reach. Side rails up X 1. Pulse ox on. NIBP on. 20:22 Angelo Blanchard MD is Attending Physician. 7 21:00 Bladder scan completed. 101ml. jp3 21:13 CT Stone Protocol In Process Unspecified. EDMS 05/14 00:35 Juana Ruiz MD is Referral Physician. 7 01:00 No provider procedures requiring assistance completed. IV discontinued, intact, jb4 bleeding controlled, No redness/swelling at site. Pressure dressing applied. Administered Medications: 05/13 21:36 Drug: Zofran (Ondansetron) 4 mg Route: IVP; Site: right antecubital; jb4 22:00 Follow up: Response: No adverse reaction jb4 21:38 Drug: NS 0.9% 1000 ml Route: IV; Rate: 1000 ml; Site: right antecubital; jb4 22:30 Follow up: Response: No adverse reaction; IV Status: Completed infusion jb4 21:38 Drug: morphine 4 mg Route: IVP; Site: right antecubital; jb4 22:00 Follow up: Response: No adverse reaction; Pain is decreased; RASS: Alert and Calm (0) jb4 05/14 00:07 Drug: TORadol 30 mg Route: IVP; Site: right antecubital; jb4 00:30 Follow up: Response: No adverse reaction; Pain is decreased jb4 Outcome: 00:36 Discharge ordered by . mhNikki 01:15 Discharged to home ambulatory. jb4 01:15 Condition: stable 01:15 Discharge instructions given to patient, Instructed on discharge instructions, follow up and referral plans. medication usage, Demonstrated understanding of instructions, follow-up care, medications, Prescriptions given X 1. 01:17 Patient left the ED. jb4 Signatures: Dispatcher [employer] EDMS Chance Chew RN RN jb4 Aleksander Cabral jp3 Ginger Lindo RN RN ca1 [place], [place] 2 Angelo Blanchard MD MD 7
--- NOTE | 2020-05-14 00:38 | EDPHYS ---
Physician Documentation [facility] Name: Duy Torres Jr Age: 44 yrs Sex: Male : 1975 Arrival Date: 05/13/2020 Time: 19:30 Bed 13 Private MD: ED Physician Angelo Blanchard HPI: 05/13 20:52 This 44 yrs old Male presents to ER via Ambulatory with complaints of mh7 Abdominal Pain, Back Pain, Testicular Pain, Vomiting. 20:52 The patient complains of pain in the right flank. The pain radiates to the Right Lower mh7 Abdomen. Onset: The symptoms/episode began/occurred 4 day(s) ago. Modifying factors: The symptoms are alleviated by nothing. the symptoms are aggravated by nothing. Associated signs and symptoms: Pertinent positives: dysuria, nausea, vomiting, Pertinent negatives: diarrhea, dizziness, fever, urinary frequency, headache, hematuria, pain radiating to the lower extremities. Severity of pain: At its worst the pain was moderate yesterday, in the emergency department the pain is unchanged. The patient has been recently seen by a physician: 2 day(s) ago, non related ER. Historical: - Allergies: 19:53 No Known Allergies; ca1 - PMHx: 19:53 Anxiety; Back pain; Depression; neck pain; Kidney stones; ca1 - PSHx: 19:53 testicular torsion; Hernia repair; ca1 - Immunization history:: Adult Immunizations up to date, Flu vaccine is not up to date. - Social history:: Smoking status: Patient reports the use of cigarette tobacco products, smokes one pack cigarettes per day. ROS: 20:52 Constitutional: Negative for fever, chills, and weight loss, Eyes: Negative for injury, mh7 pain, redness, and discharge, ENT: Negative for injury, pain, and discharge, Neck: Negative for injury, pain, and swelling, Cardiovascular: Negative for chest pain, palpitations, and edema, Respiratory: Negative for shortness of breath, cough, wheezing, and pleuritic chest pain, MS/Extremity: Negative for injury and deformity, Skin: Negative for injury, rash, and discoloration, Neuro: Negative for headache, weakness, numbness, tingling, and seizure, Psych: Negative for depression, anxiety, suicide ideation, homicidal ideation, and hallucinations, Allergy/Immunology: Negative for hives, rash, and allergies, Endocrine: Negative for neck swelling, polydipsia, polyuria, polyphagia, and marked weight changes, Hematologic/Lymphatic: Negative for swollen nodes, abnormal bleeding, and unusual bruising. Exam: 20:52 Head/Face: Normocephalic, atraumatic. Neck: Trachea midline, no thyromegaly or masses mh7 palpated, and no cervical lymphadenopathy. Supple, full range of motion without nuchal rigidity, or vertebral point tenderness. No Meningismus. Chest/axilla: Normal chest wall appearance and motion. Nontender with no deformity. No lesions are appreciated. Cardiovascular: Regular rate and rhythm with a normal S1 and S2. No gallops, murmurs, or rubs. Normal PMI, no JVD. No pulse deficits. Respiratory: Lungs have equal breath sounds bilaterally, clear to auscultation and percussion. No rales, rhonchi or wheezes noted. No increased work of breathing, no retractions or nasal flaring. 20:52 Skin: Warm, dry with normal turgor. Normal color with no rashes, no lesions, and no evidence of cellulitis. MS/ Extremity: Pulses equal, no cyanosis. Neurovascular intact. Full, normal range of motion. Neuro: Awake and alert, GCS 15, oriented to person, place, time, and situation. Cranial nerves II-XII grossly intact. Motor strength 5/5 in all extremities. Sensory grossly intact. Cerebellar exam normal. Normal gait. Psych: Awake, alert, with orientation to person, place and time. Behavior, mood, and affect are within normal limits. 20:52 Constitutional: The patient appears in no acute distress, alert, awake, uncomfortable. 20:52 Abdomen/GI: Inspection: abdomen appears normal, Bowel sounds: normal, in all quadrants, Palpation: mild abdominal tenderness, in the right lower quadrant, Rectal exam: the exam is deferred, because of patient request, Indicators: McBurney's point is not tender, Whitman's sign is negative, Rovsing's sign is negative, Obturator sign is negative, Psoas sign is negative, Liver: no appreciated palpable abnormalities, Hernia: not appreciated. 20:52 Back: pain, is absent, ROM is normal, normal spinal alignment noted, CVA tenderness, that is moderate, is noted on the right, vertebral tenderness, is not appreciated, muscle spasm, is not present. Vital Signs: 19:49 BP 125 / 97; Pulse 89; Resp 16; Temp 97.4(TE); Pulse Ox 98% on R/A; Weight 94.8 kg (R); ca1 Height 5 ft. 9 in. (175.26 cm) (R); Pain 9/10; 21:40 BP 143 / 100; Pulse 68; Resp 16; Pulse Ox 98% on R/A; jb4 22:30 BP 137 / 93; Pulse 80; Resp 16; Pulse Ox 99% on R/A; jb4 05/14 00:00 BP 133 / 87; Pulse 71; Resp 16; Pulse Ox 98% on R/A; jb4 00:45 BP 138 / 93; Pulse 86; Resp 16; Pulse Ox 97% on R/A; jb4 05/13 19:49 Body Mass Index 30.86 (94.80 kg, 175.26 cm) ca1 MDM: 05/13 20:50 Patient medically screened. [facility] 05/14 00:34 Differential diagnosis: nephrolithiasis, pyelonephritis, UTI, diverticulitis. Data [facility] reviewed: vital signs, nurses notes, lab test result(s), CBC, electrolytes, urinalysis, radiologic studies, CT scan. Data interpreted: Pulse oximetry: on room air is 98 %. Interpretation: normal. Counseling: I had a detailed discussion with the patient and/or guardian regarding: the historical points, exam findings, and any diagnostic results supporting the discharge/admit diagnosis, the presence of at least one elevated blood pressure reading (>120/80) during this emergency department visit, lab results, radiology results, the need for outpatient follow up, to return to the emergency department if symptoms worsen or persist or if there are any questions or concerns that arise at home. Response to treatment: the patient's symptoms have resolved after treatment, the patient's blood pressure is in an acceptable range, mental status has returned to baseline, the patient no longer shows bradycardia, the patient is not short of breath, the patient is not tachycardic, the patient's pain is gone, the patient's temperature has normalized. 05/13 20:51 Order name: Basic Metabolic Panel [facility] 05/13 20:51 Order name: CBC with Diff; Complete Time: 22:22 [facility] 05/13 20:51 Order name: Hepatic Function; Complete Time: 22:22 [facility] 05/13 20:51 Order name: Lipase; Complete Time: 22:22 [facility] 05/13 20:52 Order name: Basic Metabolic Panel; Complete Time: 22:22 [facility] 05/14 00:15 Order name: Urine Dipstick--Ancillary (enter results) [facility] 05/13 20:51 Order name: IV Saline Lock; Complete Time: 21:19 [facility] 05/13 20:51 Order name: Labs collected and sent; Complete Time: 21:19 [facility] 05/13 20:51 Order name: Urine Dipstick-Ancillary (obtain specimen); Complete Time: 00:07 [facility] 05/13 20:51 Order name: CT Stone Protocol [facility] Administered Medications: 05/13 21:36 Drug: Zofran (Ondansetron) 4 mg Route: IVP; Site: right antecubital; [facility] 22:00 Follow up: Response: No adverse reaction [facility] 21:38 Drug: NS 0.9% 1000 ml Route: IV; Rate: 1000 ml; Site: right antecubital; [facility] 22:30 Follow up: Response: No adverse reaction; IV Status: Completed infusion [facility] 21:38 Drug: morphine 4 mg Route: IVP; Site: right antecubital; 4 22:00 Follow up: Response: No adverse reaction; Pain is decreased; RASS: Alert and Calm (0) [facility] 05/14 00:07 Drug: TORadol 30 mg Route: IVP; Site: right antecubital; [facility] 00:30 Follow up: Response: No adverse reaction; Pain is decreased [facility] Disposition: 05/14/20 00:36 Discharged to Home. Impression: Kidney Stones. - Condition is Stable. - Discharge Instructions: Kidney Stones, [id number]. - Prescriptions for Zofran ODT 4 mg Oral tablet,disintegrating - place 1 tablet by TRANSLINGUAL route every 8 hours As needed; 10 tablet. - Medication Reconciliation Form, Thank You Letter, Antibiotic Education, Prescription Opioid Use form. - Follow up: Juana Ruiz MD; When: 1 - 2 days; Reason: Worsening of condition, Recheck today's complaints. - Problem is an ongoing problem. - Symptoms have improved. Signatures: Dispatcher [facility] Hospital[facility]ance Ashley RN RN jb4 Ginger Lindo RN RN ca1 Angelo Blanchard MD MD mh7 Corrections: (The following items were deleted from the chart) 01:17 00:36 05/14/2020 00:36 Discharged to Home. Impression: Kidney Stones. Condition is jb4 Stable. Forms are Medication Reconciliation Form, Thank You Letter, Antibiotic Education, Prescription Opioid Use. Follow up: Juana Ruiz; When: 1 - 2 days; Reason: Worsening of condition, Recheck today's complaints. Problem is an ongoing problem. Symptoms have improved. mh7
[2020-05-14 00:53] LABS: Urine Blood 3+ (NEG); Urine Glucose NEGATIVE (NEG); Urine Protein TRACE (NEG); Urine Specific Gravity 1.025 (1.005-1.030)
[2020-05-14 01:24] VITALS: TEMP 97.4
[2020-05-14 01:30] VITALS: BP 138/93; O2SAT 97
--- NOTE | 2020-05-14 12:52 | RAD REPORT ---
EXAM DESCRIPTION: CT Abdomen and Pelvis Without Intravenous Contrast CLINICAL HISTORY: The patient is 44 years old and is Male; FLANK PAIN TECHNIQUE: Axial computed tomography images of the abdomen and pelvis without intravenous contrast. Sagittal and coronal reformatted images were created and reviewed. This CT exam was performed usi ng one or more of the following dose reduction techniques: automated exposure control, adjustment o f the mA and/or kV according to patient size, and/or use of iterative reconstruction technique. COMPARISON: No relevant prior studies available. FINDINGS: Lung bases: Unremarkable. No mass. No consolidation. ABDOMEN: Liver: Unremarkable. Gallbladder and bile ducts: Unremarkable. No calcified stones. No ductal dilation. Pancreas: Unremarkable. No ductal dilation. Spleen: Unremarkable. No splenomegaly. Adrenals: Unremarkable. No mass. Kidneys and ureters: 4 mm calculus at the right distal ureter resulting in mild right hydronephr osis. 2.6 cm right renal cyst. Stomach and bowel: Unremarkable. No obstruction. No mucosal thickening. PELVIS: Appendix: The appendix is seen and is within normal limits Bladder: Unremarkable. No stones. Reproductive: Unremarkable as visualized. ABDOMEN and PELVIS: Intraperitoneal space: Unremarkable. No free air. No significant fluid collection. Bones/joints: No acute fracture. No dislocation. Soft tissues: Unremarkable. Vasculature: Unremarkable. No abdominal aortic aneurysm. Lymph nodes: Unremarkable. No enlarged lymph nodes. IMPRESSION: 4 mm calculus at the right distal ureter resulting in mild right hydronephrosis. Electronically signed by: Otis Fam MD 05/13/2020 9:51 PM CDT Due to temporary technical issues with the PACS/Fluency reporting system, reports are being signed by the in house radiologist without review as a courtesy to ensure prompt reporting. The interpreting r adiologist is fully responsible for the content of the report.
== END 2020-05-14 01:17 | disposition home or self-care (01) ==
LOC: ER 19:29
DX: N20.0 Calculus of kidney (principal); F17.210 Nicotine dependence, cigarettes, uncomplicated; Z87.442 Personal history of urinary calculi
CPT/HCPCS: 36415; 74176; 76377; 80048; 80076; 81003; 83690; 85025; 96361; 96374; 96375; 99284; J2405; J7030

== ENCOUNTER 2021-05-02 16:42 | Emergency (ER) | payer SELFPAY ==
[2021-05-02] MEDS ORDERED: LIDOCAINE 1% W/EPI 1:100,000 MDV 20 ML VIAL ONE (17:24)
--- NOTE | 2021-05-02 17:32 | ER ---
Nurse's Notes [facility] Name: Duy Torres Jr Age: 45 yrs Sex: Male : 1975 Arrival Date: 05/02/2021 Time: 16:44 Bed 25 Private MD: Diagnosis: Laceration without foreign body of left hand, initial encounter;Acute pharyngitis, unspecified;Essential (primary) hypertension Presentation: 05/02 16:53 Chief complaint: Patient states: Pt came from [facility] where he was seen for 5 hand Lacerations. Lacs came from punching his side mirror. Pt stated that they did not clean the wounds and was told he needed stitches but gave none. Also has sore throat with yellow film covering uvula and tonsils. Coronavirus screen: Vaccine status: Patient reports being unvaccinated. Ebola Screen: Patient negative for fever greater than or equal to 101.5 degrees Fahrenheit, and additional compatible Ebola Virus Disease symptoms Patient denies exposure to infectious person. Patient denies travel to an Ebola-affected area in the 21 days before illness onset. Initial Sepsis Screen:. Risk Assessment: Do you want to hurt yourself or someone else?. 16:53 Method Of Arrival: Ambulatory [facility] 16:53 Acuity: VALERIE 3 5 Triage Assessment: 16:58 General: Appears uncomfortable, Behavior is cooperative, anxious. Pain: Complains of 5 pain in left hand. Musculoskeletal: Swelling MULTIPLE LACERATIONS. Injury Description: Laceration sustained to left hand. - Immunization history:: Last tetanus immunization: > 10 years ago. - Social history:: Smoking status: Patient/guardian denies using tobacco, Stopped _ months ago 3. Screenin:01 Abuse screen: Denies threats or abuse. Denies injuries from another. Nutritional 5 screening: No deficits noted. On. Tuberculosis screening: No symptoms or risk factors identified. Fall Risk None identified. Assessment: 17:01 Reassessment: No changes from previously documented assessment. 5 Vital Signs: 16:53 BP 145 / 100; Pulse 127; Resp 24; Temp 97.2; Pulse Ox 98% ; Weight 95.25 kg; Height 5 5 ft. 9 in. (175.26 cm); Pain 10/10; 16:53 Body Mass Index 31.01 (95.25 kg, 175.26 cm) ch5 ED Course: 16:44 Patient arrived in ED. am2 16:50 Rashida Haddad, RN is Primary Nurse. es2 16:52 Naldo Jones MD is Attending Physician. julieta 16:58 Triage completed. ch5 16:58 Arm band placed on right wrist. ch5 18:10 Ajay Vasquez MD is Referral Physician. julieta Administered Medications: 17:12 Drug: Lidocaine-Epinephrine -1%: (1:100,000) 8 ml {Note: AT B/S.} Volume: 20 ml; Route: es2 Infiltration; 17:24 Drug: Tetanus-Diphtheria Toxoid Adult 0.5 ml {Under Cutter: [employer]. Exp: es2 10/29/2022. Lot #: [id number]. } Route: IM; Site: left deltoid; 18:30 Follow up: Response: No adverse reaction bp 17:27 Drug: Clindamycin 300 mg Route: PO; es2 18:31 Follow up: Response: No adverse reaction bp 17:49 Drug: Decadron (dexamethasone) 10 mg Route: IM; Site: right gluteus; es2 18:30 Follow up: Response: No adverse reaction bp 17:49 Drug: Rocephin (cefTRIAXone) 1 grams Route: IM; Site: left gluteus; es2 18:30 Follow up: Response: No adverse reaction bp 18:30 Drug: Norvasc (amlodipine) 5 mg Route: PO; bp 18:31 Follow up: Response: No adverse reaction bp Outcome: 17:31 Discharge ordered by . julieta 18:31 Patient left the ED. tt3 Signatures: Naldo Jones MD MD cha Moreno, Amanda am2 Darci Chowdary, RN RN bp Alf Cronin tt3 Bry Richey RN RN ch5 Rashida Haddad, CHEPE RN es2 Corrections: (The following items were deleted from the chart) 16:59 16:58 PMHx: neck pain; ch5 ch5 16:59 16:58 PMHx: Back pain; ch5 ch5 16:59 16:58 PMHx: Depression; ch5 ch5 16:59 16:58 PMHx: Anxiety; ch5 ch5 16:59 16:58 PMHx: Kidney stones; ch5 ch5
--- NOTE | 2021-05-02 17:32 | EDPHYS ---
Physician Documentation [facility] Name: Duy Torres Jr Age: 45 yrs Sex: Male : 1975 Arrival Date: 05/02/2021 Time: 16:44 Bed 25 Private MD: ED Physician Naldo Jones HPI: 05/02 17:27 This 45 yrs old Male presents to ER via Ambulatory with complaints of Hand julieta Injury, Sore Throat. 17:27 The patient or guardian reports a laceration, irregular, pain. The complaints affect julieta the left hand diffusely. Context: The problem was sustained at home. Onset: The symptoms/episode began/occurred 4 hour(s) ago. Modifying factors: The symptoms are alleviated by holding still, the symptoms are aggravated by movement. Associated signs and symptoms: The patient has no apparent associated signs or symptoms. Severity of symptoms: At their worst the symptoms were mild, in the emergency department the symptoms are unchanged. The patient has not experienced similar symptoms in the past. - Immunization history:: Last tetanus immunization: > 10 years ago. - Social history:: Smoking status: Patient/guardian denies using tobacco, Stopped _ months ago 3. ROS: 17:28 Constitutional: Negative for fever, chills, and weight loss, Eyes: Negative for injury, julieta pain, redness, and discharge, Neck: Negative for injury, pain, and swelling, Cardiovascular: Negative for chest pain, palpitations, and edema, Respiratory: Negative for shortness of breath, cough, wheezing, and pleuritic chest pain, Abdomen/GI: Negative for abdominal pain, nausea, vomiting, diarrhea, and constipation, Back: Negative for injury and pain, : Negative for injury, bleeding, discharge, and swelling, Skin: Negative for injury, rash, and discoloration, Neuro: Negative for headache, weakness, numbness, tingling, and seizure, Psych: Negative for depression, anxiety, suicide ideation, homicidal ideation, and hallucinations, Allergy/Immunology: Negative for hives, rash, and allergies, Endocrine: Negative for neck swelling, polydipsia, polyuria, polyphagia, and marked weight changes. 17:28 MS/extremity: Positive for decreased range of motion, pain, of the dorsal aspect of middle phalanx of left index finger, dorsal aspect of proximal phalanx of left middle finger and dorsal aspect of middle phalanx of left ring finger. Exam: 17:28 Constitutional: This is a well developed, well nourished patient who is awake, alert, julieta and in no acute distress. Head/Face: Normocephalic, atraumatic. Eyes: Pupils equal round and reactive to light, extra-ocular motions intact. Lids and lashes normal. Conjunctiva and sclera are non-icteric and not injected. Cornea within normal limits. Periorbital areas with no swelling, redness, or edema. Neck: Trachea midline, no thyromegaly or masses palpated, and no cervical lymphadenopathy. Supple, full range of motion without nuchal rigidity, or vertebral point tenderness. No Meningismus. Chest/axilla: Normal chest wall appearance and motion. Nontender with no deformity. No lesions are appreciated. Cardiovascular: Regular rate and rhythm with a normal S1 and S2. No gallops, murmurs, or rubs. Normal PMI, no JVD. No pulse deficits. Respiratory: Lungs have equal breath sounds bilaterally, clear to auscultation and percussion. No rales, rhonchi or wheezes noted. No increased work of breathing, no retractions or nasal flaring. Abdomen/GI: Soft, non-tender, with normal bowel sounds. No distension or tympany. No guarding or rebound. No evidence of tenderness throughout. Back: No spinal tenderness. No costovertebral tenderness. Full range of motion. Skin: Warm, dry with normal turgor. Normal color with no rashes, no lesions, and no evidence of cellulitis. Neuro: Awake and alert, GCS 15, oriented to person, place, time, and situation. Cranial nerves II-XII grossly intact. Motor strength 5/5 in all extremities. Sensory grossly intact. Cerebellar exam normal. Normal gait. Psych: Awake, alert, with orientation to person, place and time. Behavior, mood, and affect are within normal limits. 17:28 ENT: Posterior pharynx: Tonsils: with erythema, with exudate, Uvula: edematous, erythema, swelling, that is mild, erythema, that is mild, exudate, that is mild, peritonsillar mass, is not appreciated, pooling of secretions, is not appreciated. Vital Signs: 16:53 BP 145 / 100; Pulse 127; Resp 24; Temp 97.2; Pulse Ox 98% ; Weight 95.25 kg; Height 5 ch5 ft. 9 in. (175.26 cm); Pain 1010; 16:53 Body Mass Index 31.01 (95.25 kg, 175.26 cm) ch5 Laceration: 17:32 Wound Repair of 3.5cm ( 1.4in ) subcutaneous laceration to left hand and dorsal aspect julieta of middle phalanx of left ring finger and dorsal aspect of proximal phalanx of left middle finger and dorsal aspect of middle phalanx of left index finger. Irregularly shaped.. Distal neuro/vascular/tendon intact. Anesthesia: Local anesthetic administered with 8 mls of 1% lidocaine w/ Epi. Wound prep: Moderate cleansing by me. Skin closed with 6 5-0 Prolene using interrupted sutures and sterile technique. Dressed with Neosporin. Patient tolerated well. MDM: 16:52 Patient medically screened. julieta 17:30 Differential diagnosis: contusion, abrasion, tendonitis. Data reviewed: vital signs, [facility] nurses notes. Data interpreted: desk monitor: rate is 127 beats/min, rhythm is regular, Pulse oximetry: on room air is 98 %. Counseling: I had a detailed discussion with the patient and/or guardian regarding: the historical points, exam findings, and any diagnostic results supporting the discharge/admit diagnosis, the need for outpatient follow up, for definitive care, a family practitioner. 05/02 17:11 Order name: Dressing - Wound; Complete Time: 17:12 [facility] 05/02 17:11 Order name: Gloves, Sterile; Complete Time: 17:12 [facility] 05/02 17:11 Order name: Prolene, Sutures; Complete Time: 17:12 [facility] 05/02 17:11 Order name: Setup Suture Tray; Complete Time: 17:12 [facility] Administered Medications: 17:12 Drug: Lidocaine-Epinephrine -1%: (1:100,000) 8 ml {Note: AT B/S.} Volume: 20 ml; Route: es2 Infiltration; 17:24 Drug: Tetanus-Diphtheria Toxoid Adult 0.5 ml {[employer]: [employer]. Exp: es2 10/29/2022. Lot #: [id number]. } Route: IM; Site: left deltoid; 18:30 Follow up: Response: No adverse reaction bp 17:27 Drug: Clindamycin 300 mg Route: PO; es2 18:31 Follow up: Response: No adverse reaction bp 17:49 Drug: Decadron (dexamethasone) 10 mg Route: IM; Site: right gluteus; es2 18:30 Follow up: Response: No adverse reaction bp 17:49 Drug: Rocephin (cefTRIAXone) 1 grams Route: IM; Site: left gluteus; es2 18:30 Follow up: Response: No adverse reaction bp 18:30 Drug: Norvasc (amlodipine) 5 mg Route: PO; bp 18:31 Follow up: Response: No adverse reaction bp Disposition Summary: 05/02/21 17:31 Discharge Ordered Location: Home julieta Problem: new julieta Symptoms: have improved julieta Condition: Stable julieta Diagnosis - Laceration without foreign body of left hand, initial encounter julieta - Acute pharyngitis, unspecified julieta - Essential (primary) hypertension julieta Followup: julieta - With: Private Physician - When: 2 - 3 days - Reason: Recheck today's complaints, Continuance of care, Re-evaluation by your physician Followup: julieta - With: Ajay Vasquez MD - When: 2 - 3 days - Reason: Recheck today's complaints, Re-evaluation by your physician Discharge Instructions: - Discharge Summary Sheet julieta - Hypertension, Adult julieta - Laceration Care, Adult julieta - Pharyngitis julieta - Sore Throat julieta - Strep Throat, Adult julieta - Upper Respiratory Infection, Adult julieta - Sore Throat, [id number] julieta - Hypertension, Adult, [id number] julieta - How to Take Your Blood Pressure, [id number] julieta - Managing Your Hypertension julieta Forms: - Medication Reconciliation Form julieta - Thank You Letter julieta - Antibiotic Education julieta - Prescription Opioid Use julieta Prescriptions: - Clindamycin HCl 300 mg Oral Capsule - take 1 capsule by ORAL route every 6 hours for 10 days; 28 capsule; Refills: 0, julieta Product Selection Permitted - Norvasc 5 mg Oral Tablet - take 1 tablet by ORAL route once daily; 20 tablet; Refills: 0, Product julieta Selection Permitted Signatures: Naldo Jones MD MD cha Peltier, Brian RN RN bp Bry Richey RN RN ch5 Rashida Haddad RN RN es2 Corrections: (The following items were deleted from the chart) 16:59 16:58 PMHx: neck pain; ch5 ch5 16 16:58 PMHx: Back pain; ch5 ch5 16: 16:58 PMHx: Depression; ch5 ch5 1659 16:58 PMHx: Anxiety; ch5 ch5 1659 16:58 PMHx: Kidney stones; ch5 ch5
[2021-05-02] MEDS ORDERED: CEFTRIAXONE 1000 MG/VIAL ONE ×2 (17:47→17:58)
[2021-05-02] MEDS ORDERED: dexAMETHasone 10 MG/ML VIAL ONE (17:47)
[2021-05-02] MEDS ORDERED: TETANUS & DIPHTHERIA TOX,ADULT 0.5 ML VIAL ONE (17:49)
[2021-05-02] MEDS ORDERED: LIDOCAINE 2% MPF 5 ML VIAL ONE (18:08)
[2021-05-02 18:36] VITALS: BP 145/100; TEMP 97.2; O2SAT 98
== END 2021-05-02 18:31 | disposition home or self-care (01) ==
LOC: ER 16:42
PROC: 0JQK0ZZ Repair Left Hand Subcutaneous Tissue and Fascia, Open Approach (ICD-10-PCS; principal; 2021-05-02)
DX: S61.412A Laceration without foreign body of left hand, initial encounter (principal); J02.9 Acute pharyngitis, unspecified; I10 Essential (primary) hypertension; W25.XXXA Contact with sharp glass, initial encounter; Y93.9 Activity, unspecified; Y92.9 Unspecified place or not applicable; Z23 Encounter for immunization
CPT/HCPCS: 90471; 90714; 96372; 99282; J1100

== ENCOUNTER 2021-05-12 12:22 | Emergency (ER) | payer SELFPAY ==
--- NOTE | 2021-05-12 13:50 | EDPHYS ---
Physician Documentation [facility] Name: Duy Torres Jr Age: 45 yrs Sex: Male : 1975 Arrival Date: 05/12/2021 Time: 12:23 Bed 11 Private MD: ED Physician Gaudencio Muniz HPI: 05/12 13:47 This 45 yrs old Male presents to ER via Ambulatory with complaints of Suture jmm Removal. 13:47 The patient has sutures on the left hand. Sutures/leah progress: The patient has no jmm c/o's. The wound is well-healing with no redness, swelling, discharge, or dehiscence reported. It is unknown whether or not the patient has had similar symptoms in the past. Historical: - Allergies: 12:32 No Known Drug Allergies; tw2 - PMHx: 12:32 Hypertensive disorder; Anxiety; tw2 - Immunization history:: Adult Immunizations. - Social history:: Smoking status: . ROS: 13:47 Constitutional: Negative for fever, chills, and weight loss, Cardiovascular: Negative jmm for chest pain, palpitations, and edema, Respiratory: Negative for shortness of breath, cough, wheezing, and pleuritic chest pain. 13:47 Skin: Positive for laceration(s). 13:47 All other systems are negative. Exam: 13:47 Constitutional: This is a well developed, well nourished patient who is awake, alert, jmm and in no acute distress. Head/Face: atraumatic. Eyes: EOMI, no conjunctival erythema appreciated ENT: Moist Mucus Membranes Neck: Trachea midline, Supple Chest/axilla: Normal chest wall appearance and motion. Cardiovascular: Regular rate and rhythm. No edema appreciated Respiratory: Normal respirations, no respiratory distress appreciated Abdomen/GI: Non distended, soft Back: Normal ROM 13:47 Skin: Healing lacerations noted to the left hand. No's purulent drainage appreciated. 13:47 Neuro: Orientation: is normal, Mentation: is normal, Memory: is normal. 13:47 Psych: Behavior/mood is pleasant, cooperative. Vital Signs: 12:30 BP 121 / 103; Pulse 110; Resp 17; Temp 97.5(TE); Pulse Ox 99% on R/A; tw2 MDM: 13:12 Patient medically screened. jmm 13:48 Data reviewed: vital signs, nurses notes. Counseling: I had a detailed discussion with [facility] the patient and/or guardian regarding: the historical points, exam findings, and any diagnostic results supporting the discharge/admit diagnosis, the need for outpatient follow up, to return to the emergency department if symptoms worsen or persist or if there are any questions or concerns that arise at home. ED course: Physical exam does not reveal any concerning signs of infection. Patient advised follow-up PCP and otherwise given strict return precautions. Patient understood and agrees plan of care.. Administered Medications: No medications were administered Disposition: 23:44 Co-signature as Attending Physician, Gaudencio Muniz MD I agree with the assessment and kdr plan of care. Disposition Summary: 05/12/21 13:49 Discharge Ordered Location: Home [facility] Condition: Stable [facility] Diagnosis - Encounter for removal of sutures [facility] Followup: [facility] - With: Private Physician - When: 2 - 3 days - Reason: Recheck today's complaints, Continuance of care, Re-evaluation by your physician Discharge Instructions: - Suture Removal, Care After [facility] - Discharge Summary Sheet ss Forms: - Medication Reconciliation Form [facility] - Thank You Letter [facility] - Antibiotic Education [facility] - Prescription Opioid Use [facility] Signatures: Gaudencio Muniz MD MD kdr Mickail, Joel, PA PA jm Irina Bright, RN RN tw2
--- NOTE | 2021-05-12 13:50 | ER ---
Nurse's Notes [facility] Name: Duy Torres Jr Age: 45 yrs Sex: Male : 1975 Arrival Date: 05/12/2021 Time: 12:23 Bed 11 Private MD: Diagnosis: Encounter for removal of sutures Presentation: 05/12 12:29 Chief complaint: Patient states: just need to see if my sutures are ready to be tw2 removed. i got them on the 3rd. 12:30 Chief complaint: Patient states: i am high strung and have bad anxiety but i did forget tw2 to take my BP medicine. Coronavirus screen: At this time, the client does not indicate any symptoms associated with coronavirus-19. Ebola Screen: Patient denies travel to an Ebola-affected area in the 21 days before illness onset. Initial Sepsis Screen: Does the patient meet any 2 criteria? HR > 90 bpm. No. Patient's initial sepsis screen is negative. Does the patient have a suspected source of infection? No. Patient's initial sepsis screen is negative. Risk Assessment: Do you want to hurt yourself or someone else? Patient reports no desire to harm self or others. Onset of symptoms was May 12, 2021. 12:30 Method Of Arrival: Ambulatory tw2 12:30 Acuity: VALERIE 5 tw2 Triage Assessment: 12:32 General: Appears in no apparent distress. Behavior is anxious. Pain: Denies pain. tw2 Respiratory: Airway is patent Respiratory effort is even, unlabored, Respiratory pattern is regular, symmetrical. Historical: - Allergies: 12:32 No Known Drug Allergies; tw2 - PMHx: 12:32 Hypertensive disorder; Anxiety; tw2 - Immunization history:: Adult Immunizations. - Social history:: Smoking status: . Screenin:37 Abuse screen: Denies threats or abuse. Nutritional screening: No deficits noted. tw2 Tuberculosis screening: No symptoms or risk factors identified. Fall Risk None identified. Assessment: 13:05 General: Appears in no apparent distress. comfortable, Behavior is calm, cooperative. ss Neuro: Level of Consciousness is awake, alert, Oriented to person, place, time, situation. Cardiovascular: Capillary refill < 3 seconds is brisk in bilateral fingers. Respiratory: Airway is patent Respiratory effort is even, unlabored, Respiratory pattern is regular, symmetrical. GI: No signs and/or symptoms were reported involving the gastrointestinal system. EENT: Nares are clear Oral mucosa is moist. Derm: Skin is intact, is healthy with good turgor, Skin is pink, warm \T\ dry. normal. 13:47 Reassessment: Patient appears in no apparent distress at this time. Patient and/or ss family updated on plan of care and expected duration. Pain level reassessed. Patient is alert, oriented x 3, equal unlabored respirations, skin warm/dry/pink. Vital Signs: 12:30 BP 121 / 103; Pulse 110; Resp 17; Temp 97.5(TE); Pulse Ox 99% on R/A; tw2 ED Course: 12:23 Patient arrived in ED. ds1 12:31 Bed in low position. Call light in reach. tw2 12:32 Triage completed. tw2 12:32 Arm band placed on. tw2 12:38 Glenn Ken PA is PHCP. [facility] 12:38 Gaudencio Muniz MD is Attending Physician. [facility] 13:05 Lucina Rubio, CHEPE is Primary Nurse. ss 13:47 No provider procedures requiring assistance completed. Patient did not have IV access ss during this emergency room visit. Administered Medications: No medications were administered Outcome: 13:49 Discharge ordered by . [facility] 13:53 Discharged to home ambulatory. ss 13:53 Condition: good 13:53 Discharge instructions given to patient, Instructed on discharge instructions, follow up and referral plans. Demonstrated understanding of instructions, follow-up care. 13:53 Patient left the ED. ss Signatures: Glenn Ken PA PA [facility] Vaishali Curtis ds1 Lucina Rubio RN RN Irina Bright RN RN tw2 Corrections: (The following items were deleted from the chart) 12:32 12:29 Chief complaint: Patient states: just need to see if my sutures are ready to be tw2 removed. tw2
[2021-05-12 13:58] VITALS: BP 121/103; TEMP 97.5; O2SAT 99
== END 2021-05-12 13:53 | disposition home or self-care (01) ==
LOC: ER 12:22
DX: Z48.02 Encounter for removal of sutures (principal)
CPT/HCPCS: 99281